=== PATIENT | male | born 1985 | race African-American/Black ===

== ENCOUNTER 2019-03-25 20:10 | Emergency (ER) | payer SELFPAY ==
[~2019-03-25] VITALS: Ht 180.3 cm; Wt 82.0 kg
[2019-03-25 22:45] LABS: BASOPHILS % 0.5 % (0.0-2.0); EOSINOPHILS % 0.8 % (0.0-5.0); HEMATOCRIT. 42.9 % (42.0-52.0); HEMOGLOBIN. 14.9 g/dL (14.0-18.0); LYMPHOCYTES % 20.4 % (20.0-50.0); MEAN CORPUSCULAR VOLUME 86.5 fL (80.0-94.0); MEAN PLATELET VOLUME 9.1 fl (7.4-10.4); MONOCYTES % 8.8 % (2.0-8.0); NEUTROPHILS % 69.5 % (40.0-76.0); PLATELET 217 x1000/uL (130-400); RED BLOOD CELL COUNT 4.96 mill/uL (4.7-6.1); RED CELL DISTRIBUTION WIDTH 14.1 % (11.6-14.6)
[2019-03-25 22:48] LABS: CHLORIDE 106 mEq/L (98-107)
[2019-03-25] MEDS ORDERED: TOPIRAMATE 25MG TABLET PO STA (23:28)
[2019-03-26 01:36] VITALS: BP 120/66
== END 2019-03-26 01:42 | disposition home or self-care (01) ==
LOC: EDBD 20:10 → ER 20:10
DX: G40.909 Epilepsy, unspecified, not intractable, without status epilepticus (principal)
CPT/HCPCS: 36415; 80053; 82962; 85025; 99283; Z7610

== ENCOUNTER 2024-03-05 22:37 | Emergency (ER) | payer SELFPAY ==
[~2024-03-05] VITALS: Ht 180.3 cm; Wt 96.0 kg
[2024-03-05 22:40] VITALS: O2SAT 95
[2024-03-05 23:21] LABS: BASOPHILS % 0.7 % (0.0-2.0); EOSINOPHILS % 1.3 % (0.0-5.0); HEMATOCRIT. 42.4 % (42.0-52.0); HEMOGLOBIN. 14.7 g/dL (14.0-18.0); LYMPHOCYTES % 51.7 % (20.0-50.0); MEAN CORPUSCULAR HEMOGLOBIN 30.9 pg (28.0-32.0); MEAN CORPUSCULAR HGB CONC 34.7 g/dL (31.0-37.0); MEAN CORPUSCULAR VOLUME 89.3 fL (80.0-94.0); MEAN PLATELET VOLUME 8.8 fl (7.4-10.4); MONOCYTES % 8.3 % (2.0-8.0); PLATELET 263 x1000/uL (130-400); RED BLOOD CELL COUNT 4.75 mill/uL (4.7-6.1); RED CELL DISTRIBUTION WIDTH 13.9 % (11.6-14.6); WHITE BLOOD COUNT 4.8 x1000/uL (4.5-11.0)
[2024-03-05 23:25] VITALS: TEMP 98.7
[2024-03-05 23:27] LABS: CHLORIDE 105 mEq/L (98-107); SODIUM 139 mEq/L (136-145)
[2024-03-05 23:28] LABS: CARBON DIOXIDE 24 mEq/L (21-32)
[2024-03-05 23:29] LABS: CALCIUM 9.7 mg/dL (8.7-10.4)
[2024-03-05 23:33] LABS: CREATININE 1.4 mg/dL (0.6-1.3); GLUCOSE 84 mg/dL (70-105)
[2024-03-05 23:34] LABS: UREA NITROGEN BLOOD 19 mg/dL (9-23)
[2024-03-05 23:41] LABS: ETHANOL BLOOD < 10 mg/dL (<10)
[2024-03-06] MEDS ORDERED: TOPI50TA MT (00:29)
[2024-03-06] MEDS: TOPIRAMATE 25MG TABLET PO STA (01:34)
[2024-03-06 01:35] VITALS: BP 128/78; PULSE 83; RESP 18
[2024-03-09 15:06] LABS: TOPIRAMATE <1.5 ug/mL (2.0-25.0)
== END 2024-03-06 01:47 | disposition home or self-care (01) ==
LOC: ER 22:37
DX: G40.89 Other seizures (principal)
CPT/HCPCS: 80048; 80320; 85025; 36415; 93005; 99284; 80201; Z7610; G0480